=== PATIENT | male | born 1990 | race Caucasian/White ===

== ENCOUNTER 2023-03-01 12:52 | Inpatient (IN) | payer MEDICAID, MEDICARE ==
[~2023-03-01] VITALS: Ht 175.3 cm; Wt 89.3 kg
[~2023-03-01 12:52] MED LIST: ARIP1TAB5; DOCU-209; DOCU1CAP46; DONE5TAB80; ESCI1TAB36; HYDR-2595; LEVE500T3; LORA-1105; TRAZ-227; TRAZ-228; VALP1CAP4
[2023-03-01] MEDS ORDERED: VANCOMYCIN 1GM/250ML 250 ML IV ONE (13:45)
[2023-03-01 14:33] LABS: Basophils # (auto) 0.1 10 ^3/uL (0-0.2); Basophils % (auto) 1.1 % (0.0-2.0); Eosinophils # (auto) 0.3 10 ^3/uL (0-0.8); Eosinophils % (auto) 3.6 % (0.0-7.0); Hematocrit 40.7 % (41.0-53.0); Hemoglobin 13.6 g/dL (13.5-17.5); Lymphocytes # (auto) 2.5 10 ^3/uL (0.4-5.4); Lymphocytes % (auto) 27.2 % (10.0-50.0); Mean Corpuscular Hemoglobin 31.3 pg (28.0-32.0); Mean Corpuscular Hgb Conc. 33.5 g/dL (32.0-36.0); Mean Corpuscular Volume 93.4 fL (80.0-100.0); Monocytes # (auto) 0.5 10 ^3/uL (0-1.3); Monocytes % (auto) 5.2 % (0.0-12.0); Neutrophils # (auto) 5.7 10 ^3/uL (1.6-8.6); Neutrophils % (auto) 62.9 % (37.0-80.0); Nucleated Red Blood Cells % 0.2 %; Red Blood Cells 4.36 10^6/uL (4.5-5.90); Red Cell Distribution Width 14.9 % (11.8-14.3)
[2023-03-01 14:34] LABS: INR 1.02 (0.9-1.15); Partial Thromboplastin Time 37.3 SEC (24.5-34.5); Prothrombin Time 10.7 sec (9.3-11.8)
[2023-03-01 14:43] LABS: Erythrocyte Sedimentation Rate 42 mm/hr (0-20)
[2023-03-01 15:08] LABS: Alanine Aminotransferase 11 U/L (7-40); Alkaline Phosphatase 62 U/L (46-116); Anion Gap 6 (5-15); Blood Urea Nitrogen 11 mg/dL (9-23); Calcium 9.4 mg/dL (8.5-10.1); Carbon Dioxide 29 mmol/L (20-30); Chloride 104 mmol/L (98-107); Glucose 112 mg/dL (74-106); Sodium 139 mmol/L (136-145)
[2023-03-01 15:09] LABS: Albumin 4.7 g/dL (3.2-4.8); Aspartate Aminotransferase 13 U/L (13-40); Bilirubin, Total 0.2 mg/dL (0.2-1.0)
[2023-03-01] MEDS ORDERED: NITROGLYCERIN 0.4 MG SL TAB SL PRN (17:15)
[2023-03-01] MEDS ORDERED: PROMETHAZINE HCL 25 MG/ML 1ML IV PRN (17:15)
[2023-03-01] MEDS ORDERED: VANCOMYCIN PER PHARMACY 0 MG IV SCH (17:15)
[2023-03-01] MEDS ORDERED: MORPHINE SULFATE INJ 2 MG/ml SYRG IV PRN (17:15)
[2023-03-01] MEDS ORDERED: HYDROcodone-ACET 5/325MG TAB PO PRN (17:15)
[2023-03-01] MEDS: FUROSEMIDE 20 MG/2 ML VIAL IV SCH (21:06)
[2023-03-01] MEDS: levETIRAcetam 500 MG TAB PO SCH (22:17)
[2023-03-01] MEDS: POTASSIUM EFFERVESENT TAB 25 MEQ PO SCH (22:17)
[2023-03-01] MEDS: traZODone HCL 50 MG TAB PO SCH (22:18)
[2023-03-01] MEDS: VALPROIC ACID 250 MG/5 ML ORAL SOLN PO SCH (22:19)
[2023-03-02] MEDS: VANCOMYCIN 1GM/250ML 250 ML IV SCH ×2 (01:06→08:42)
[2023-03-02 04:05] VITALS: PULSE 76; RESP 18; O2SAT 98
[2023-03-02] MEDS: HYDROcodone-ACET 5/325MG TAB PO PRN (05:12)
[2023-03-02] MEDS: FUROSEMIDE 20 MG/2 ML VIAL IV SCH (06:00)
[2023-03-02] MEDS: VALPROIC ACID 250 MG/5 ML ORAL SOLN PO SCH ×2 (06:39→22:21)
[2023-03-02] MEDS ORDERED: cefTRIAXone 1GM/50ML D5W 50 ML IV SCH (09:00)
[2023-03-02] MEDS: POTASSIUM EFFERVESENT TAB 25 MEQ PO SCH (12:10)
[2023-03-02] MEDS: ENOXAPARIN SOD 40 MG/0.4 ML SYRINGE SC SCH (12:11)
[2023-03-02] MEDS: DONEPEZIL HYDROCHLORIDE 5 MG TAB PO SCH (12:11)
[2023-03-02] MEDS: FAMOTIDINE 20 MG TAB PO SCH (12:11)
[2023-03-02] MEDS: levETIRAcetam 500 MG TAB PO SCH ×2 (12:12→22:20)
[2023-03-02] MEDS: CITALOPRAM HYDROBR 20 MG TAB PO SCH (12:12)
[2023-03-02] MEDS: ceFAZolin 1GM/50ML 50 ML IV SCH ×3 (17:00→22:21)
[2023-03-02 20:30] VITALS: PULSE 98; RESP 18; O2SAT 98
[2023-03-02] MEDS: traZODone HCL 50 MG TAB PO SCH (22:20)
[2023-03-02 22:31] VITALS: BP 96/62; PULSE 78; RESP 18; TEMP 36.8; O2SAT 98
[2023-03-02 23:31] VITALS: BP 133/71; PULSE 74; RESP 17; TEMP 97.9; O2SAT 97
[2023-03-03 05:00] VITALS: BP 97/67; PULSE 64; RESP 17; TEMP 97.7; O2SAT 93
[2023-03-03] MEDS: ceFAZolin 1GM/50ML 50 ML IV SCH ×3 (05:35→21:58)
[2023-03-03 06:30] LABS: Anion Gap 8 (5-15); Carbon Dioxide 28 mmol/L (20-30); Chloride 103 mmol/L (98-107); Potassium 4.1 mmol/L (3.5-5.1); Sodium 139 mmol/L (136-145)
[2023-03-03 06:31] LABS: Calcium 9.4 mg/dL (8.7-10.4)
[2023-03-03 06:36] LABS: BUN/Creatinine Ratio 7.7 (10.0-20.0); Blood Urea Nitrogen 6 mg/dL (9-23); Glucose 105 mg/dL (74-106)
[2023-03-03 07:14] LABS: Basophils # (auto) 0.1 10 ^3/uL (0-0.2); Basophils % (auto) 1.2 % (0.0-2.0); Eosinophils # (auto) 0.1 10 ^3/uL (0-0.8); Eosinophils % (auto) 1.9 % (0.0-7.0); Hematocrit 38.7 % (41.0-53.0); Hemoglobin 13.1 g/dL (13.5-17.5); Lymphocytes # (auto) 2.2 10 ^3/uL (0.4-5.4); Lymphocytes % (auto) 39.3 % (10.0-50.0); Mean Corpuscular Hemoglobin 31.2 pg (28.0-32.0); Mean Corpuscular Hgb Conc. 33.9 g/dL (32.0-36.0); Mean Corpuscular Volume 92.1 fL (80.0-100.0); Monocytes # (auto) 0.5 10 ^3/uL (0-1.3); Monocytes % (auto) 8.9 % (0.0-12.0); Neutrophils # (auto) 2.7 10 ^3/uL (1.6-8.6); Neutrophils % (auto) 48.7 % (37.0-80.0); Nucleated Red Blood Cells % 0.4 %; Red Cell Distribution Width 14.6 % (11.8-14.3); White Blood Cell 5.6 10^3/uL (4.4-10.8)
[2023-03-03 08:00] VITALS: PULSE 68; RESP 20
[2023-03-03 09:00] VITALS: BP 117/81; PULSE 68; RESP 20; TEMP 98.6; O2SAT 93
[2023-03-03] MEDS: VALPROIC ACID 250 MG/5 ML ORAL SOLN PO SCH ×2 (09:26→21:59)
[2023-03-03] MEDS: POTASSIUM EFFERVESENT TAB 25 MEQ PO SCH (09:26)
[2023-03-03] MEDS: DONEPEZIL HYDROCHLORIDE 5 MG TAB PO SCH (09:27)
[2023-03-03] MEDS: CITALOPRAM HYDROBR 20 MG TAB PO SCH (09:27)
[2023-03-03] MEDS: FAMOTIDINE 20 MG TAB PO SCH (09:28)
[2023-03-03] MEDS: levETIRAcetam 500 MG TAB PO SCH ×2 (09:29→21:58)
[2023-03-03] MEDS: FUROSEMIDE 20 MG/2 ML VIAL IV SCH (09:31)
[2023-03-03] MEDS: ENOXAPARIN SOD 40 MG/0.4 ML SYRINGE SC SCH (09:52)
[2023-03-03 13:00] VITALS: BP 126/72; PULSE 67; RESP 18; TEMP 98.5; O2SAT 96
[2023-03-03] MEDS ORDERED: DIVA500T13 PO (13:48)
[2023-03-03] MEDS ORDERED: OLAN1TAB26 PO (13:48)
[2023-03-03] MEDS ORDERED: LITH300T3 PO (13:48)
[2023-03-03] MEDS ORDERED: GEMF-66 PO (13:48)
[2023-03-03 17:00] VITALS: BP 139/101; PULSE 74; RESP 18; TEMP 98.3; O2SAT 92
[2023-03-03] MEDS: traZODone HCL 50 MG TAB PO SCH (21:58)
[2023-03-03 22:00] VITALS: BP 126/92; PULSE 73; RESP 18; TEMP 98.2; O2SAT 96
[2023-03-03] MEDS: HYDROcodone-ACET 5/325MG TAB PO PRN (23:51)
[2023-03-04 05:00] VITALS: BP 105/59; PULSE 49; RESP 17; TEMP 98; O2SAT 99
[2023-03-04] MEDS: ceFAZolin 1GM/50ML 50 ML IV SCH ×3 (06:04→21:47)
[2023-03-04 08:00] VITALS: BP 99/56; PULSE 60; RESP 16; TEMP 97.9; O2SAT 97
[2023-03-04] MEDS: CITALOPRAM HYDROBR 20 MG TAB PO SCH (09:49)
[2023-03-04] MEDS: FUROSEMIDE 20 MG/2 ML VIAL IV SCH (09:49)
[2023-03-04] MEDS: VALPROIC ACID 250 MG/5 ML ORAL SOLN PO SCH ×2 (09:50→21:47)
[2023-03-04] MEDS: DONEPEZIL HYDROCHLORIDE 5 MG TAB PO SCH (09:50)
[2023-03-04] MEDS: FAMOTIDINE 20 MG TAB PO SCH (09:50)
[2023-03-04] MEDS: ENOXAPARIN SOD 40 MG/0.4 ML SYRINGE SC SCH (09:51)
[2023-03-04] MEDS: levETIRAcetam 500 MG TAB PO SCH ×2 (09:56→21:47)
[2023-03-04] MEDS: POTASSIUM EFFERVESENT TAB 25 MEQ PO SCH (10:00)
[2023-03-04 10:58] LABS: Anion Gap 8 (5-15); Carbon Dioxide 30 mmol/L (20-30); Chloride 103 mmol/L (98-107); Potassium 3.9 mmol/L (3.5-5.1); Sodium 141 mmol/L (136-145)
[2023-03-04 10:59] LABS: Calcium 9.8 mg/dL (8.5-10.1)
[2023-03-04 11:04] LABS: BUN/Creatinine Ratio 12.5 (10.0-20.0); Blood Urea Nitrogen 10 mg/dL (9-23); Glucose 113 mg/dL (74-106)
[2023-03-04 12:00] VITALS: BP 117/75; PULSE 51; RESP 16; TEMP 98.2; O2SAT 97
[2023-03-04 16:00] VITALS: BP 114/65; PULSE 64; RESP 16; TEMP 98.6; O2SAT 92
[2023-03-04] MEDS: traZODone HCL 50 MG TAB PO SCH (21:47)
[2023-03-04 22:00] VITALS: BP 124/70; PULSE 61; RESP 20; TEMP 98.9; O2SAT 95
[2023-03-05] MEDS ORDERED: VANCOMYCIN PER PHARMACY 0 MG IV SCH (04:00)
[2023-03-05] MEDS ORDERED: VANCOMYCIN 1GM/250ML 250 ML IV ONE (04:00)
[2023-03-05 05:00] VITALS: BP 121/79; PULSE 59; RESP 20; TEMP 97.9; O2SAT 92
[2023-03-05] MEDS: ceFAZolin 1GM/50ML 50 ML IV SCH ×2 (06:13→13:30)
[2023-03-05 07:09] LABS: Anion Gap 8 (5-15); Carbon Dioxide 28 mmol/L (20-30); Chloride 104 mmol/L (98-107); Potassium 3.9 mmol/L (3.5-5.1); Sodium 140 mmol/L (136-145)
[2023-03-05 07:10] LABS: Calcium 9.6 mg/dL (8.5-10.1)
[2023-03-05 07:15] LABS: BUN/Creatinine Ratio 14.3 (10.0-20.0); Blood Urea Nitrogen 12 mg/dL (9-23); Glucose 124 mg/dL (74-106)
[2023-03-05 08:00] VITALS: BP 109/71; PULSE 65; RESP 16; RESP 18; TEMP 98.4; O2SAT 93
[2023-03-05] MEDS: DONEPEZIL HYDROCHLORIDE 5 MG TAB PO SCH (08:47)
[2023-03-05] MEDS: CITALOPRAM HYDROBR 20 MG TAB PO SCH (08:47)
[2023-03-05] MEDS: FAMOTIDINE 20 MG TAB PO SCH (08:47)
[2023-03-05] MEDS: POTASSIUM EFFERVESENT TAB 25 MEQ PO SCH (08:47)
[2023-03-05] MEDS: levETIRAcetam 500 MG TAB PO SCH (08:47)
[2023-03-05] MEDS: FUROSEMIDE 20 MG/2 ML VIAL IV SCH (08:47)
[2023-03-05] MEDS: VALPROIC ACID 250 MG/5 ML ORAL SOLN PO SCH (08:54)
[2023-03-05] MEDS: ENOXAPARIN SOD 40 MG/0.4 ML SYRINGE SC SCH (10:00)
[2023-03-05] MEDS ORDERED: CEPH500C PO (10:40)
[2023-03-05] MEDS ORDERED: LACTCAP35 PO (10:40)
[2023-03-05 12:00] VITALS: BP 112/66; PULSE 68; RESP 16; TEMP 98.6; O2SAT 93
[2023-03-05 16:00] VITALS: BP 131/71; PULSE 62; RESP 16; TEMP 98.1; O2SAT 96
== END 2023-03-05 17:36 | disposition home health service (06) | DRG 383 ==
LOC: ER 12:52 → OVERFLOW 17:12 → CENTRAL 03-02 21:00
PROVIDERS: ADMIT Hospitalist; ATTEND Hospitalist
DX: L03.115 Cellulitis of right lower limb (principal); F17.210 Nicotine dependence, cigarettes, uncomplicated; L03.116 Cellulitis of left lower limb; R19.7 Diarrhea, unspecified; Z82.3 Family history of stroke; Z87.820 Personal history of traumatic brain injury
CPT/HCPCS: 36415; 80048; 80053; 80164; 80202; 82565; 83605; 85025; 85610; 85652; 85730; 87040; 93306; 93970; 97163; G0378; J0690; J0696